=== PATIENT | male | born 1985 | race Caucasian/White ===

== ENCOUNTER 2017-07-12 12:26 | Emergency (ER) | payer OTHER ==
[2017-07-12 12:34] VITALS: BP 131/71
--- NOTE | 2017-07-12 12:38 | EDM.PDOC ---
ED HPI GENERAL MEDICAL PROBLEM - General Chief Complaint: General Stated Complaint: Right side rib pain Time Seen by Provider: 07/12/17 12:30 Source of Information: Reports: Patient History Limitations: Reports: No Limitations - History of Present Illness INITIAL COMMENTS - FREE TEXT/NARRATIVE: According to patient he slipped on the ice and fall on the ground. He tried to prevent fall by trying to hold on to a piece of equipment with his right hand. He landed on the ground and hit hard on his right chest. This happened on . He claims that he was fine yesterday but today he claims that his whole right chest hurts when he takes deep breath to move his chest sided ways. rates pain at 7-8/10. resting and shallow breathing improves the pain. No chest wall bruising or swelling. Also he claims that his right shoulder hurts all around but can move his arm with minimal discomfort. No other complaints. Duration: Day(s): (2) Location: Reports: Chest Quality: Reports: Ache Severity: Moderate Improves with: Reports: Rest Worsens with: Reports: Breathing, Movement Associated Symptoms: Reports: Chest Pain. Denies: Confusion, Cough, Diaphoresis , Fever/Chills, Nausea/Vomiting, Rash, Seizure, Shortness of Breath, Weakness - Related Data Allergies Allergy/AdvReac Type Severity Reaction Status Date / Time No Known Allergies Allergy Verified 07/12/17 12:34 Home Meds: Home Meds NK [No Known Home Meds] 08/23/16 [History] Past Medical History HEENT History: Reports: Impaired Vision Musculoskeletal History: Reports: Back Pain, Chronic, Other (See Below) Other Musculoskeletal History: spondelothesis, slipped vertibra / Disc lower back - Infectious Disease History Infectious Disease History: Reports: Chicken Pox - Past Surgical History Musculoskeletal Surgical History: Reports: Carpal Tunnel Social & Family History - Tobacco Use Smoking Status *Q: Current Some Day Smoker Years of Tobacco use: 1 Packs/Tins Daily: 1 Second Hand Smoke Exposure: Yes - Caffeine Use Caffeine Use: Reports: Coffee, Soda, Tea - Alcohol Use Days Per Week of Alcohol Use: 1 Number of Drinks Per Day: 1 Total Drinks Per Week: 1 - Recreational Drug Use Recreational Drug Use: No ED ROS GENERAL - Review of Systems Review Of Systems: See Below Constitutional: Denies: Fever, Chills HEENT: Denies: Rhinitis, Throat Pain, Throat Swelling Respiratory: Reports: Pleuritic Chest Pain. Denies: Shortness of Breath, Wheezing, Cough, Sputum Cardiovascular: Denies: Chest Pain, Lightheadedness GI/Abdominal: Denies: Abdominal Pain, Nausea, Vomiting Musculoskeletal: Reports: Shoulder Pain (right shoulder pain). Denies: Joint Pain, Joint Swelling Skin: Denies: Bruising, Pruritis, Erythema ED EXAM, GENERAL - Physical Exam Exam: See Below Exam Limited By: No Limitations General Appearance: Alert, WD/WN, Mild Distress Eye Exam: Bilateral Eye: EOMI, PERRL Ears: Normal External Exam, Normal Canal, Hearing Grossly Normal, Normal TMs Ear Exam: Bilateral Ear: Auricle Normal, Canal Normal, TM normal Nose: Normal Inspection, Normal Mucosa, No Blood Throat/Mouth: Normal Inspection, Normal Lips, Normal Teeth, Normal Gums, Normal Oropharynx, Normal Voice, No Airway Compromise Head: Atraumatic, Normocephalic Neck: Normal Inspection, Supple, Non-Tender, Full Range of Motion Respiratory/Chest: No Respiratory Distress, Lungs Clear, Normal Breath Sounds, No Accessory Muscle Use, Other (There is no swelling or bruising of the chest wall.tender over the right lateral chest wall, no crepitus felt.) Cardiovascular: Normal Peripheral Pulses, Regular Rate, Rhythm, No Edema, No Gallop, No JVD, No Murmur, No Rub Course - Vital Signs Text/Narrative:: Pt's rib series and chest xray apper normal. Thee whatley seem to be some rib deformity in the posterior aspect of 3rd and 4th ribs on right side, but patient is not tender in the area. Pt reassured that he has chest wall contusion. He did receive toradol 30mg IM. Advised to start motrin 800mg 3 times daily for next 1 wk with food. Robaxin 1000mg at bedtime. intermittent heat to the chest wall. Avoid lifting and pulling heavy weight. Followup in clinic if not better. Last Recorded V/S: Last Vital Signs Temp 98.2 F 07/12/17 12:30 Pulse 91 07/12/17 12:30 Resp 22 H 07/12/17 12:30 BP 131/71 07/12/17 12:30 Pulse Ox 97 07/12/17 12:30 - Orders/Labs/Meds Orders: Active Orders 24 hr Category Date Time Status Ribs 2V w Chest Rt [CR] Stat Exams 07/12/17 12:30 Ordered Meds: Medications Discontinued Medications Generic Name Dose Route Start Last Admin Trade Name Lior PRN Reason Stop Dose Admin Ketorolac Tromethamine 30 mg 07/12/17 12:52 Toradol IM 07/12/17 12:53 ONETIME ONE Ketorolac Tromethamine Confirm 07/12/17 12:55 Toradol Administered 07/12/17 12:56 Dose 30 mg .ROUTE .STK-MED ONE Departure - Departure Time of Disposition: 13:00 Disposition: Home, Self-Care 01 Condition: Fair Clinical Impression: Chest wall contusion - Discharge Information Forms: ED Department Discharge - Problem List & Annotations (1) Chest wall contusion SNOMED Code(s): 88421322 Code(s): S20.219A - CONTUSION OF UNSPECIFIED FRONT WALL OF THORAX, INIT ENCNTR Status: Acute - Problem List Review Problem List Initiated/Reviewed/Updated: Yes - My Orders Last 24 Hours: My Active Orders 07/12/17 12:30 Ribs 2V w Chest Rt [CR] Stat - Assessment/Plan Last 24 Hours: My Active Orders 07/12/17 12:30 Ribs 2V w Chest Rt [CR] Stat Assessment:: Chest wall contusion Plan: Pt's rib series and chest xray apper normal. Thee whatley seem to be some rib deformity in the posterior aspect of 3rd and 4th ribs on right side, but patient is not tender in the area. Pt reassured that he has chest wall contusion. He did receive toradol 30mg IM. Advised to start motrin 800mg 3 times daily for next 1 wk with food. Robaxin 1000mg at bedtime. intermittent heat to the chest wall. Avoid lifting and pulling heavy weight. Followup in clinic if not better.
[2017-07-12] MEDS ORDERED: Methocarbamol 750 MG Tab ONE (12:50)
[2017-07-12] MEDS ORDERED: Acetaminophen/HYDROcodone 325-5 MG Tab ONE (12:50)
[2017-07-12] MEDS ORDERED: Ketorolac 30 MG/ML SDV IM ONE (12:52)
[2017-07-12] MEDS ORDERED: Ketorolac 30 MG/ML SDV ONE (12:55)
--- NOTE | 2017-07-13 20:44 | CR ---
DATE OF SERVICE: 07/12/2017 CLINICAL DATA: Fall and hit right chest wall. PA CHEST AND RIGHT RIBS No priors. The patient has taken a poor inspiration. The heart size is normal. There is mild eventration of the right hemidiaphragm and minimal atelectatic change in the right lung base. The lungs are otherwise clear. No pneumothorax. No pleural effusions. No rib abnormalities. No displaced fractures. [id number] MTDD
== END 2017-07-12 12:57 | disposition home or self-care (01) ==
LOC: LB.ED 12:26
DX: S20.211A Contusion of right front wall of thorax, initial encounter (principal); F17.210 Nicotine dependence, cigarettes, uncomplicated; W00.0XXA Fall on same level due to ice and snow, initial encounter
CPT/HCPCS: 71101; 96372; 99284; A9270; J1885

== ENCOUNTER 2017-07-13 08:52 | Emergency (ER) | payer OTHER ==
[2017-07-13 09:09] VITALS: BP 128/72
[2017-07-13] MEDS ORDERED: HYDROmorphone 2 MG/ML Syringe SUBCUT ONE (09:14)
[2017-07-13] MEDS ORDERED: Ketorolac 30 MG/ML SDV IM ONE (09:15)
[2017-07-13] MEDS ORDERED: Ketorolac 30 MG/ML SDV ONE (09:16)
[2017-07-13] MEDS ORDERED: HYDROmorphone 2 MG/ML Syringe ONE (09:16)
--- NOTE | 2017-07-13 09:21 | EDM.PDOC ---
ED HPI GENERAL MEDICAL PROBLEM - General Chief Complaint: General Stated Complaint: Rib pain worse Time Seen by Provider: 07/13/17 09:00 Source of Information: Reports: Patient History Limitations: Reports: No Limitations - History of Present Illness INITIAL COMMENTS - FREE TEXT/NARRATIVE: Pt was seen yesterday for right sided chest wall pain. He is here today as his right sided chest wall pain has got worse. He has been taking Motrin and muscle relaxants. He claims it hurts all over his right lower chest when he takes normal breaths and he has been doing shallow breaths. Hurts to turn and roll and points to his right lower chest anteriorly and laterally with pain. No Shortness of breath. Cough. Wheezing. Initial injury was on 07/10/17 when he fell on ice and landed on his right sdie of the chest. he has not pain on the day of fall . he woke up next day and started to have pain in his right chest and has progressively got worse. Kindly see the note from 07/12/17 for rest of H&P. Pt did have right sided rib series yesterday, which did not show any obvious chest wall deformity or lung contusion or opacity. Location: Reports: Chest Quality: Reports: Ache, Sharp Severity: Severe Improves with: Reports: None Worsens with: Reports: None Associated Symptoms: Reports: Chest Pain. Denies: Confusion, Cough, Diaphoresis , Fever/Chills, Nausea/Vomiting, Rash, Seizure, Shortness of Breath, Syncope, Weakness right rib pain Pain Score (Numeric/FACES): 10 - Related Data Allergies Allergy/AdvReac Type Severity Reaction Status Date / Time No Known Allergies Allergy Verified 07/13/17 09:06 Home Meds: Home Meds NK [No Known Home Meds] 08/23/16 [History] Past Medical History HEENT History: Reports: Impaired Vision Musculoskeletal History: Reports: Back Pain, Chronic, Other (See Below) Other Musculoskeletal History: spondelothesis, slipped vertibra / Disc lower back - Infectious Disease History Infectious Disease History: Reports: Chicken Pox - Past Surgical History Musculoskeletal Surgical History: Reports: Carpal Tunnel Social & Family History - Tobacco Use Smoking Status *Q: Current Some Day Smoker Years of Tobacco use: 1 Packs/Tins Daily: 1 Second Hand Smoke Exposure: Yes - Caffeine Use Caffeine Use: Reports: Coffee, Soda, Tea - Alcohol Use Days Per Week of Alcohol Use: 1 Number of Drinks Per Day: 1 Total Drinks Per Week: 1 - Recreational Drug Use Recreational Drug Use: No ED ROS GENERAL - Review of Systems Review Of Systems: See Below Constitutional: Denies: Fever, Chills HEENT: Denies: Rhinitis, Throat Pain Respiratory: Reports: Pleuritic Chest Pain. Denies: Shortness of Breath, Wheezing, Cough, Sputum, Hemoptysis Cardiovascular: Denies: Chest Pain, Lightheadedness GI/Abdominal: Denies: Abdominal Pain, Nausea, Vomiting : Denies: Flank Pain, Urgency, Urinary Retention Musculoskeletal: Denies: Joint Pain, Joint Swelling Skin: Denies: Jaundice, Pruritis, Rash Neurological: Denies: Confusion, Dizziness, Headache ED EXAM, GENERAL - Physical Exam Exam: See Below Exam Limited By: No Limitations General Appearance: Alert, WD/WN, Moderate Distress, Other (rigth chest hurts to take deep breath) Eye Exam: Bilateral Eye: EOMI, PERRL Ears: Normal External Exam, Normal Canal, Hearing Grossly Normal, Normal TMs Ear Exam: Bilateral Ear: Auricle Normal, Canal Normal, TM normal Nose: Normal Inspection, Normal Mucosa, No Blood Throat/Mouth: Normal Inspection, Normal Lips, Normal Teeth, Normal Gums, Normal Oropharynx, Normal Voice, No Airway Compromise Head: Atraumatic, Normocephalic Neck: Normal Inspection, Supple, Non-Tender, Full Range of Motion Respiratory/Chest: No Respiratory Distress, Lungs Clear, Normal Breath Sounds, No Accessory Muscle Use, Other (there is no focal tenderness of the chest wall. he is tender all over he right lower chest. Also he hasno skin brusing or swelling of the chest wall) Course - Vital Signs Text/Narrative:: Pt did receive toradol 30mg and Dilaudid 1 mg IM as he is in significant pain. Chest Ct was done, whcih shows right lower lobe pulmonary contusion with subtle fracture of the right 8th,9th and 10th ribs posteriorly, which probably is secondary to the fall. His chest pain is pleuritic in nature, as the swelling from the pulmonary contusion is causing the pleura to rub against the chest wall and causes pain. I have advised patient to do slow deep breathing exercises to help with lung expansion, which would prevent him from getting lung collapse or pneumonia. Incentive spirometer is a good option.Also good pain control by alternating vicodin 3/325 with motrin 800mg. Muscle relaxant at bedtime. The pulmonary contusion, will gradually heal and resolve. As the contusion resolves the chest pain will improve. I have advised patient not to lift or pull anything heavy or which induces pain. Advised to stay off work for the next week from 07/14/17 through 07/20/17 and followup in the clinic on 07/21/17 for recheck. Sooner if he develops productive cough, fever, chills or shortness of breath. Last Recorded V/S: Last Vital Signs Temp 98.5 F 07/13/17 08:57 Pulse 88 07/13/17 08:57 Resp 24 H 07/13/17 08:57 BP 128/72 07/13/17 08:57 Pulse Ox 100 07/13/17 08:57 - Orders/Labs/Meds Orders: Active Orders 24 hr Category Date Time Status Chest wo Cont [CT] Stat Exams 07/13/17 09:07 Ordered Meds: Medications Discontinued Medications Generic Name Dose Route Start Last Admin Trade Name Lior PRN Reason Stop Dose Admin Hydromorphone HCl Confirm 07/13/17 09:16 Dilaudid Administered 07/13/17 09:17 Dose 2 mg .ROUTE .STK-MED ONE Hydromorphone HCl 1 mg 07/13/17 09:14 07/13/17 09:26 Dilaudid SUBCUT 07/13/17 09:15 1 mg ONETIME ONE Administration Ketorolac Tromethamine Confirm 07/13/17 09:16 Toradol Administered 07/13/17 09:17 Dose 30 mg .ROUTE .STK-MED ONE Ketorolac Tromethamine 30 mg 07/13/17 09:15 07/13/17 09:20 Toradol IM 07/13/17 09:16 30 mg ONETIME ONE Administration Departure - Departure Time of Disposition: 10:00 Disposition: Home, Self-Care 01 Condition: Fair Clinical Impression: Ribs, multiple fractures - Discharge Information Referrals: PCP,None [Primary Care Provider] - Forms: ED Department Discharge Additional Instructions: Pt did receive toradol 30mg and Dilaudid 1 mg IM as he is in significant pain. Chest Ct was done, whcih shows right lower lobe pulmonary contusion with subtle fracture of the right 8th,9th and 10th ribs posteriorly, which probably is secondary to the fall. His chest pain is pleuritic in nature, as the swelling from the pulmonary contusion is causing the pleura to rub against the chest wall and causes pain. I have advised patient to do slow deep breathing exercises to help with lung expansion, which would prevent him from getting lung collapse or pneumonia. Incentive spirometer is a good option.Also good pain control by alternating vicodin 3/325 with motrin 800mg. Muscle relaxant at bedtime. The pulmonary contusion, will gradually heal and resolve. As the contusion resolves the chest pain will improve. I have advised patient not to lift or pull anything heavy or which induces pain. Advised to stay off work for the next week from 07/14/17 through 07/20/17 and followup in the clinic on 07/21/17 for recheck. Sooner if he develops productive cough, fever, chills or shortness of breath. Also on CT chest there is a small 9mm osseous density in the right glenoid, needs further workup.Pt prefers to have workup at [facility]. The reports given to patient. - Problem List & Annotations (1) Ribs, multiple fractures SNOMED Code(s): 5437137 Code(s): S22.49XA - MULTIPLE FRACTURES OF RIBS, UNSP SIDE, INIT FOR CLOS FX Status: Acute Current Visit: Yes (2) Chest wall contusion SNOMED Code(s): 62184830 Code(s): S20.219A - CONTUSION OF UNSPECIFIED FRONT WALL OF THORAX, INIT ENCNTR Status: Acute Current Visit: No - Problem List Review Problem List Initiated/Reviewed/Updated: Yes - My Orders Last 24 Hours: My Active Orders 07/13/17 09:07 Chest wo Cont [CT] Stat - Assessment/Plan Last 24 Hours: My Active Orders 07/13/17 09:07 Chest wo Cont [CT] Stat Assessment:: Right posterior 8th,9th and 10th rib subtle fracture Pulmonary contusion right lower lobe. Plan: Pt did receive toradol 30mg and Dilaudid 1 mg IM as he is in significant pain. Chest Ct was done, whcih shows right lower lobe pulmonary contusion with subtle fracture of the right 8th,9th and 10th ribs posteriorly, which probably is secondary to the fall. His chest pain is pleuritic in nature, as the swelling from the pulmonary contusion is causing the pleura to rub against the chest wall and causes pain. I have advised patient to do slow deep breathing exercises to help with lung expansion, which would prevent him from getting lung collapse or pneumonia. Incentive spirometer is a good option.Also good pain control by alternating vicodin 3/325 with motrin 800mg. Muscle relaxant at bedtime. The pulmonary contusion, will gradually heal and resolve. As the contusion resolves the chest pain will improve. I have advised patient not to lift or pull anything heavy or which induces pain. Advised to stay off work for the next week from 07/14/17 through 07/20/17 and followup in the clinic on 07/21/17 for recheck. Sooner if he develops productive cough, fever, chills or shortness of breath. Also CT chest should incidental finding of 9mm osseous density in the right glenoid. Pt will followup at [facility] and have workup done there. Copy of the report given to patient.
--- NOTE | 2017-07-13 20:00 | CT ---
DATE OF SERVICE: 07/13/2017 CLINICAL DATA: Pain. UNENHANCED CHEST CT Multislice acquisition through the chest without IV contrast was performed. No priors. There is a poorly defined alveolar infiltrate within the right lower lobe most likely representing pneumonia. Considering the patient's clinical history, pulmonary contusion should also be considered. There is a very small right pleural effusion. There are minimal atelectatic changes of the dependent portion of the left lower lung. The left lung is otherwise clear. No pneumothorax. The heart size is normal. No pericardial effusion. No hilar or mediastinal adenopathy. No displaced fractures. There is a sclerotic lesion within the right scapula adjacent to the glenoid which is most likely a bone island. No other significant findings. [id number] MTDD
== END 2017-07-13 10:07 | disposition home or self-care (01) ==
LOC: LB.ED 08:52
DX: S22.41XA Multiple fractures of ribs, right side, initial encounter for closed fracture (principal); F17.210 Nicotine dependence, cigarettes, uncomplicated; W19.XXXA Unspecified fall, initial encounter
CPT/HCPCS: 71250; 96372; 99285; J1170; J1885

== ENCOUNTER 2021-03-11 12:06 | Emergency (ER) | payer OTHER ==
[2021-03-11 12:18] VITALS: BP 134/93; PULSE 95
[2021-03-11] MEDS: cefTRIAXone 1 GM Vial IM ONE (13:17)
[2021-03-11] MEDS: cefTRIAXone 1 GM Vial ONE (13:19)
--- NOTE | 2021-03-11 13:27 | EDM.PDOC ---
ED HPI GENERAL MEDICAL PROBLEM - General Chief Complaint: Lower Extremity Injury/Pain Stated Complaint: R leg pain Time Seen by Provider: 03/11/21 12:20 Source of Information: Reports: Patient, Family History Limitations: Reports: No Limitations - History of Present Illness INITIAL COMMENTS - FREE TEXT/NARRATIVE: pt states onset of malaise and toe pain approx. 2-3 days ago. states history of cellulitis, recently OTC tx for tinea of his right foot. greatest pain is index toe right foot which radiates associating with red streak up his ankle, the streak dissapears after that but some TTP to his medial knee and thigh. also subjective fevers. denies nausea, vomiting, weakness. Right Lower Foot Pain Score (Numeric/FACES): 8 - Related Data Allergies Allergy/AdvReac Type Severity Reaction Status Date / Time No Known Allergies Allergy Verified 07/13/17 09:06 Home Meds: Home Meds Amoxicillin 500 mg PO TID 8 Days #24 capsule 03/11/21 [Rx] Sulfamethoxazole/Trimethoprim [Bactrim Ds Tablet] 1 each PO BID #16 tablet 03/11/21 [Rx] atorvaSTATin Calcium [Atorvastatin Calcium] 20 mg PO BEDTIME 03/11/21 [History] Past Medical History HEENT History: Reports: Impaired Vision Musculoskeletal History: Reports: Back Pain, Chronic, Other (See Below) Other Musculoskeletal History: spondelothesis, slipped vertibra / Disc lower back - Infectious Disease History Infectious Disease History: Reports: Chicken Pox - Past Surgical History Musculoskeletal Surgical History: Reports: Carpal Tunnel Social & Family History - Tobacco Use Tobacco Use Status *Q: Former Tobacco User Used Tobacco, but Quit: Yes Month/Year Tobacco Last Used: 2016 - Caffeine Use Caffeine Use: Reports: Coffee, Soda, Tea - Recreational Drug Use Recreational Drug Use: No Review of Systems - Review of Systems Review Of Systems: Comprehensive ROS is negative, except as noted in HPI. ED EXAM, GENERAL - Physical Exam Exam: See Below Exam Limited By: No Limitations General Appearance: Alert, WD/WN, No Apparent Distress Respiratory/Chest: No Respiratory Distress, Normal Breath Sounds, No Accessory Muscle Use Cardiovascular: Normal Peripheral Pulses, Regular Rate, Rhythm, No Edema Peripheral Pulses: 2+: Radial (L), Radial (R), Posterior Tibial (L), Posterior Tibial (R), Dorsalis Pedis (L), Dorsalis Pedis (R) Extremities: Normal Range of Motion, No Pedal Edema, Normal Capillary Refill, Other (abscessed index toe of right foot. right foot dorsal aspect shows red streak that is TTP extending to medial ankle. TTP continues up to medial knee. ) ED TRAUMA EXTREMITY PROCEDURES - I&D Site: index toe, medial aspect right foot Skin Prep: Chlorhexidine (Hibiciens) Local Anesthesia: Lidocaine: 1% Plain Local Anesthetic Volume: 1cc Area Incised With: 11 Blade Drainage: Purulent, Bloody, Moderate Amount Probed to Break Up Loculations: Yes Packed With: None Sterile Dressinx4(s) Complications: No Course - Vital Signs Last Recorded V/S: Last Vital Signs Temp 100.1 F 03/11/21 12:16 Pulse 95 03/11/21 12:16 Resp 16 03/11/21 12:16 BP 134/93 H 03/11/21 12:16 Pulse Ox 96 03/11/21 12:16 - Orders/Labs/Meds Orders: Active Orders 24 hr Category Date Time Status Amoxicillin [Amoxil] Med 03/11/21 13:30 Active 500 mg PO Q8H Medication Orders Amoxicillin (Amoxicillin 500 Mg Cap) 500 mg PO Q8H JOCELYNN Meds: Medications Generic Name Dose Route Start Last Admin Trade Name Freq PRN Reason Stop Dose Admin Amoxicillin 500 mg 03/11/21 13:30 Amoxicillin 500 Mg Cap PO Q8H JOCELYNN Discontinued Medications Generic Name Dose Route Start Last Admin Trade Name Freq PRN Reason Stop Dose Admin Amoxicillin 500 mg 03/11/21 13:33 03/11/21 13:40 Amoxicillin 500 Mg Cap PO 03/11/21 13:34 500 mg ONETIME ONE Administration Ceftriaxone Sodium 1 gm 03/11/21 13:04 03/11/21 13:17 Ceftriaxone 1 Gm Vial IM 03/11/21 13:05 1 gm ONETIME ONE Administration Ceftriaxone Sodium Confirm 03/11/21 13:19 03/11/21 13:19 Ceftriaxone 1 Gm Vial Administered 03/11/21 13:20 Not Given Dose 1 gm .ROUTE .STK-MED ONE Trimethoprim/Sulfamethoxazole 1 tab 03/11/21 13:27 03/11/21 13:40 Sulfamethoxazole/Trimethoprim 800-160 Mg Tab PO 03/11/21 13:28 1 tab ONETIME ONE Administration Trimethoprim/Sulfamethoxazole 1 tab 03/11/21 13:32 Sulfamethoxazole/Trimethoprim 800-160 Mg Tab PO 03/11/21 13:33 ONETIME ONE - Radiology Interpretation Free Text/Narrative:: 1315: POCUS of left leg shows no cobblestoning of tissues throughout medial aspect through ankle and foot. femoral, saphenous, popliteal veins show good compression and Doppler flow, as do peripheral veins of gastrocnemius muscles and dorsal arch of foot. Departure - Departure Time of Disposition: 14:00 Disposition: Home, Self-Care 01 Condition: Good Clinical Impression: Cellulitis and abscess of foot - Discharge Information *PRESCRIPTION DRUG MONITORING PROGRAM REVIEWED*: Not Applicable *COPY OF PRESCRIPTION DRUG MONITORING REPORT IN PATIENT BHAVIN: Not Applicable Prescriptions: Amoxicillin 500 mg PO TID 8 Days #24 capsule Sulfamethoxazole/Trimethoprim [Bactrim Ds Tablet] 1 each PO BID #16 tablet Instructions: Skin Abscess, Cellulitis, Adult, Wound Care, Adult Referrals: PCP,None [Primary Care Provider] - Forms: ED Department Discharge Additional Instructions: Monitor for worsening signs and symptoms of infection. Keep wound clean, wash with soap and water, dry well. Elevate extremity and manage pain with tylenol and ibuprofen. if symptoms worsen: fever, malaise, general illness that is concerning, please return RUFINO. I expect improvements in 24-48 hrs but it would be ok to come back to recheck in ER if you are concerned. Sepsis Event Note (ED) - Evaluation Sepsis Screening Result: Possible Sepsis Risk - Focused Exam Vital Signs: Vital Signs Temp Pulse Resp BP Pulse Ox 03/11/21 12:16 100.1 F 95 16 134/93 H 96 - Problem List & Annotations (1) Cellulitis and abscess of leg SNOMED Code(s): 554245644 Code(s): L02.419 - CUTANEOUS ABSCESS OF LIMB, UNSPECIFIED; L03.119 - CELLULITIS OF UNSPECIFIED PART OF LIMB Status: Acute Current Visit: No - Problem List Review Problem List Initiated/Reviewed/Updated: Yes - My Orders Last 24 Hours: My Active Orders 03/11/21 13:30 Amoxicillin [Amoxil] 500 mg PO Q8H - Assessment/Plan Last 24 Hours: My Active Orders 03/11/21 13:30 Amoxicillin [Amoxil] 500 mg PO Q8H Assessment:: cellulitis and abscess of right foot: double coverage with bactrim DS BID and amoxicillin. rocephin IM during ED course and single dose of bactrim and amox for tonight. monitor symptoms and have low threshold for return to ER for recheck. take abx as prescribed. expect symtom improvement in 24-48hr but return if not better by 48hr or worse at any time.
[2021-03-11] MEDS: Sulfamethoxazole/Trimethoprim 800-160 MG Tab PO ONE ×2 (13:40→16:30)
[2021-03-11] MEDS: Amoxicillin 500 MG Cap PO ONE (13:40)
[2021-03-11] MEDS: Amoxicillin 500 MG Cap PO SCH (16:30)
== END 2021-03-11 13:30 | disposition home or self-care (01) ==
LOC: LB.ED 12:06
DX: L03.032 Cellulitis of left toe (principal); L02.612 Cutaneous abscess of left foot; Z87.891 Personal history of nicotine dependence; Z79.899 Other long term (current) drug therapy
CPT/HCPCS: 10060; 96372; 99283; A9270; J0696

== ENCOUNTER 2021-11-08 17:24 | Emergency (ER) | payer OTHER ==
[2021-11-08] MEDS ORDERED: traMADol 50 MG Tab ONE (18:00)
[2021-11-08] MEDS ORDERED: Amoxicillin/Clavulanate K 875-125 MG Tab ONE (18:00)
[2021-11-08] MEDS: Ketorolac 60 MG/2 ML SDV IM ONE (19:01)
== END 2021-11-08 18:08 | disposition home or self-care (01) ==
LOC: LB.ED 17:24
DX: K08.89 Other specified disorders of teeth and supporting structures (principal)
CPT/HCPCS: 99281; 99282; A9270-GY

== ENCOUNTER 2023-03-31 22:25 | Emergency (ER) | payer OTHER ==
[2023-03-31 22:41] VITALS: BP 127/91
[2023-03-31 22:51] LABS: BASOPHILS ABSOLUTE AUTO 0.02 K/uL (0.02-0.10); BASOPHILS PERCENT AUTO 0.2 % (0.0-0.5); EOSINOPHILS ABSOLUTE AUTO 0.42 K/uL (0.04-0.40); EOSINOPHILS PERCENT AUTO 3.4 % (1.0-5.0); HEMATOCRIT 44.4 % (40.0-54.0); HEMOGLOBIN 15.5 g/dL (13.0-18.0); LYMPHOCYTES ABSOLUTE AUTO 1.84 K/uL (1.50-4.00); MEAN CORPUSCULAR HEMOGLOBIN 31.9 pg (27.0-32.0); MEAN CORPUSCULAR HGB CONC 34.9 g/dL (31.0-35.0); MEAN CORPUSCULAR VOLUME 91 fL (76-96); MEAN PLATELET VOLUME 9.1 fL (6.0-10.0); MONOCYTES ABSOLUTE AUTO 1.01 K/uL (0.20-0.80); MONOCYTES PERCENT AUTO 8.2 % (3.0-10.0); NEUTROPHILS PERCENT AUTO 73.2 % (45.0-70.0); PLATELET COUNT,PLT 190 K/uL (150-400); RED BLOOD CELL COUNT 4.86 M/uL (4.50-6.50); RED CELL DISTRIBUTION WIDTH 12.7 % (11.0-16.0); WHITE BLOOD CELL COUNT,WBC 12.3 K/uL (4.0-11.0)
[2023-03-31] MEDS ORDERED: Apixaban 5 MG Tab PO ONE (23:26)
[2023-03-31 23:59] VITALS: PULSE 85
== END 2023-03-31 23:50 | disposition home or self-care (01) ==
LOC: LB.ED 22:25
DX: M79.661 Pain in right lower leg (principal); R79.1 Abnormal coagulation profile
CPT/HCPCS: 36415; 85025; 85379; 99283; A9270-GY

== ENCOUNTER 2024-09-10 14:07 | Emergency (ER) | payer OTHER ==
[2024-09-10] MEDS: Lidocaine 1% 10 ML MDV INJECT ONE (15:36)
[2024-09-10 16:00] VITALS: BP 144/87; PULSE 73
== END 2024-09-10 15:45 | disposition home or self-care (01) ==
LOC: LB.ED 14:07
DX: S61.216A Laceration without foreign body of right little finger without damage to nail, initial encounter (principal); W45.8XXA Other foreign body or object entering through skin, initial encounter
CPT/HCPCS: 12001; 99282